=== PATIENT | male | born 1980 | race Hispanic/Latino ===

== ENCOUNTER 2017-08-06 20:14 | Emergency (ER) | payer SELFPAY ==
[2017-08-06 20:55] LABS: Bilirubin Negative (Negative); Blood, Urine Negative (Negative); Clarity Clear (Clear); Glucose, Urine (Dipstick) Negative (Negative); Leukocyte Negative (Negative); Nitrite Negative (Negative); Protein, Urine (Dipstick) Negative (Neg-Trace); Urobilinogen 0.2 mg/dL (0.2-1.0)
[2017-08-06 21:03] LABS: Specific Gravity, Urine 1.002 (1.005-1.030)
== END 2017-08-06 21:28 | disposition home or self-care (01) ==
LOC: BURERS 20:14
DX: I10 Essential (primary) hypertension (principal)
CPT/HCPCS: 81003; 93005